=== PATIENT | male | born 1980 | race Caucasian/White ===

== ENCOUNTER 2016-11-07 20:29 | Emergency (ER) | payer OTHER ==
--- NOTE | 2016-11-07 21:48 | ED ORDER SUMMARY ---
..... Patient: JERED LARA OrderSheet [facility] VisitID: [id number] [address] [place] [address] 36y, M Registration Date/Time: 11/07/2016 ORDER SHEET Weight: 86.1 kg Allergies: ePHEDrine GENERAL ORDERS: MEDICATION ORDERS: Toradol IM 60 mg (NOW) (21:30 11/07/2016 ROSANAivens A.R.N.P.) (21:45 [facility]) IV FLUIDS: ORDER SHEET NOTES: [Electronically signed by Mikki Lux (22:13 11/07/2016)] [Electronically signed by Dora Vidales A.R.N.P. (23:38 11/07/2016)] [Electronically locked/signed by Mikki Lux (22:13 11/07/2016)]
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
--- NOTE | 2016-11-07 21:48 | ED ORDER SUMMARY ---
..... Patient: JERED LARA OrderSheet [facility] VisitID: [id number] [address] [place] [address] 36y, M Registration Date/Time: 11/07/2016 ORDER SHEET Weight: 86.1 kg Allergies: ePHEDrine GENERAL ORDERS: MEDICATION ORDERS: Toradol IM 60 mg (NOW) (21:30 11/07/2016 ROSANAivens A.R.N.P.) (21:45 [facility]) IV FLUIDS: ORDER SHEET NOTES: [Electronically signed by Mikki Lux (22:13 11/07/2016)] [Electronically signed by Dora Vidales A.R.N.P. (23:38 11/07/2016)] [Electronically locked/signed by Mikki Lux (22:13 11/07/2016)]
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
--- NOTE | 2016-11-07 23:38 | ED MED RECONCILIATION SUMMARY ---
Patient: JERED LARA Medication Reconciliation Report [facility] VisitID: [id number] [address] [place] [address] 36y, M Registration Date/Time: 11/07/2016 Weight: 86.1 kg Height/Length: 69 in. BMI: 28.1 ALLERGIES: ePHEDrine The patient's Home Medications are listed below: NONE. The source(s) of the original Home Medication information: Not obtained. The following Medications were given to the patient in the Emergency Department: Toradol [IM] IM 60 mg, administered: 11/07/2016 9:45:00 PM The following Medications were prescribed to the patient: Penicillin V 500mg: take 1 tab orally every 6 hours for 10 days. Dispense forty (40). No refill -- Dora Vidales A.R.N.P. Ultram 50 mg tablets: take 1-2 orally every 6 hours as needed for pain. Dispense twenty (20). No refills. Substitution is permissible. -- Dora Vidales A.R.N.P.
--- NOTE | 2016-11-07 23:38 | ED MED RECONCILIATION SUMMARY ---
Patient: JERED LARA Medication Reconciliation Report [facility] VisitID: [id number] [address] [place] [address] 36y, M Registration Date/Time: 11/07/2016 Weight: 86.1 kg Height/Length: 69 in. BMI: 28.1 ALLERGIES: ePHEDrine The patient's Home Medications are listed below: NONE. The source(s) of the original Home Medication information: Not obtained. The following Medications were given to the patient in the Emergency Department: Toradol [IM] IM 60 mg, administered: 11/07/2016 9:45:00 PM The following Medications were prescribed to the patient: Penicillin V 500mg: take 1 tab orally every 6 hours for 10 days. Dispense forty (40). No refill -- Dora Vidales A.R.N.P. Ultram 50 mg tablets: take 1-2 orally every 6 hours as needed for pain. Dispense twenty (20). No refills. Substitution is permissible. -- Dora Vidales A.R.N.P.
--- NOTE | 2016-11-07 23:38 | ED DISCHARGE INSTRUCTIONS ---
Patient: JERED LARA General Instructions [facility] VisitID: [id number] [place] [address] 36y, M Registration Date/Time: 11/07/2016 Severe dental pain. INSTRUCTIONS Warnings: GENERAL WARNINGS: Return or contact your physician immediately if your condition worsens or changes unexpectedly, if not improving as expected, or if other problems arise. Specifically return if problem worsens. Prescription Medications: Penicillin V 500mg: take 1 tab orally every 6 hours for 10 days. Dispense forty (40). No refill Ultram 50 mg tablets: take 1-2 orally every 6 hours as needed for pain. Dispense twenty (20). No refills. Substitution is permissible. Follow-up: Follow up with a dentist in about two days even if well. Summary of care provided to patient. Screening today revealed the patient's blood pressure to be in the hypertensive range. The patient should follow up with a primary care provider for blood pressure management. Understanding of the discharge instructions verbalized by patient. ADDITIONAL INFORMATION Dental Pain A crack or cavity in the tooth, which exposes the sensitive inner area of the tooth can cause tooth pain. An infection in the gum or the root of the tooth can cause pain and swelling. The pain is often made worse by drinking hot or cold fluids, or biting on hard foods. Pain may spread from the tooth to the ear or jaw on the same side. Home Care: Avoid hot and cold foods and liquids since your tooth may be sensitive to temperature changes. If your tooth is chipped or cracked, or if there is a large open cavity, apply OIL OF CLOVES (available [id number]-[id number] in drug stores) directly to the tooth to reduce pain. Some pharmacies carry an ipfk-zas-udjjeei "toothache kit." This contains a paste, which can be applied over the exposed tooth to decrease sensitivity. A cold pack on your jaw over the sore area may help reduce pain. You may use acetaminophen (Tylenol) or ibuprofen (Motrin, Advil) to control pain, unless another medicine was prescribed. [ NOTE: If you have chronic liver or kidney disease or ever had a stomach ulcer or GI bleeding, talk with your doctor before using these medicines.] If you have signs of an infection, an antibiotic will be given. Take it as directed. Follow-Up as directed with a dentist. Your pain may go away with the treatment given. However, only a dentist can fully evaluate and treat the cause and prevent the pain from coming back again. TOOTHACHE IS A SIGN OF DISEASE IN YOUR TOOTH AND SHOULD BE EXAMINED AND TREATED BY A DENTIST. Get Prompt Medical Attention if any of the following occur: Your face becomes swollen or red Pain worsens or spreads to the neck Fever over 100.4 F (38.0 C) Unusual drowsiness; headache or stiff neck; weakness or fainting Pus drains from the tooth Difficulty swallowing or breathing Penicillin V Potassium Oral tablet What is this medicine? PENICILLIN V (pen i SILL in V) is a penicillin antibiotic. It is used to treat certain kinds of bacterial infections. It will not work for colds, flu, or other viral infections. How should I use this medicine? Take this medicine by mouth with a full glass of water. Follow the directions on the prescription label. Take your medicine at regular intervals. Do not take your medicine more often than directed. Take all of your medicine as directed even if you think your are better. Do not skip doses or stop your medicine early. Talk to your powder carrier regarding the use of this medicine in children. While this drug may be prescribed for selected conditions, precautions do apply. What side effects may I notice from receiving this medicine? Side effects that you should report to your doctor or health care coordination manager as soon as possible: allergic reactions like skin rash or hives, swelling of the face, lips, or tongue breathing problems fever new symptoms of infection redness, blistering, peeling or loosening of the skin, including inside the mouth unusually weak or tired Side effects that usually do not require medical attention (report to your doctor or health care coordination manager if they continue or are bothersome): diarrhea headache nausea, vomiting sore mouth or tongue stomach upset What may interact with this medicine? control pills methotrexate other antibiotics probenecid some vaccines What if I miss a dose? If you miss a dose, take it as soon as you can. If it is almost time for your next dose, take only that dose. Do not take double or extra doses. Where should I keep my medicine? Keep out of the reach of children. Store at room temperature between 15 and 30 degrees C (59 and 86 degrees F). Keep container tightly closed. Throw away any unused medicine after the expiration date. What should I tell my health care provider before I take this medicine? They need to know if you have any of these conditions: asthma bowel disease, like colitis eczema kidney disease an unusual or allergic reaction to penicillin, cephalosporins, other antibiotics or medicines, foods, tartrazine or other dyes, or preservatives or trying to get breast-feeding What should I watch for while using this medicine? Tell your doctor or health care coordination manager if your symptoms do not improve. Do not treat diarrhea with over the counter products. Contact your doctor if you have diarrhea that lasts more than 2 days or if it is severe and watery. If you have diabetes, you may get a false-positive result for sugar in your urine. Check with your doctor or health care coordination manager. control pills may not work properly while you are taking this medicine. Talk to your doctor about using an extra method of control. Tramadol Hydrochloride Oral tablet What is this medicine? TRAMADOL (TRA ma dole) is a pain reliever. It is used to treat moderate to severe pain in adults. How should I use this medicine? Take this medicine by mouth with a full glass of water. Follow the directions on the prescription label. If the medicine upsets your stomach, take it with food or milk. Do not take more medicine than you are told to take. Talk to your powder carrier regarding the use of this medicine in children. Special care may be needed. What side effects may I notice from receiving this medicine? Side effects that you should report to your doctor or health care coordination manager as soon as possible: allergic reactions like skin rash, itching or hives, swelling of the face, lips, or tongue breathing difficulties, wheezing confusion itching light headedness or fainting spells redness, blistering, peeling or loosening of the skin, including inside the mouth seizures Side effects that usually do not require medical attention (report to your doctor or health care coordination manager if they continue or are bothersome): constipation dizziness drowsiness headache nausea, vomiting What may interact with this medicine? Do not take this medicine with any of the following medications: MAOIs like Carbex, Eldepryl, Marplan, Nardil, and Parnate This medicine may also interact with the following medications: alcohol or medicines that contain alcohol antihistamines benzodiazepines bupropion carbamazepine or oxcarbazepine clozapine cyclobenzaprine digoxin furazolidone linezolid medicines for depression, anxiety, or psychotic disturbances medicines for migraine headache like almotriptan, eletriptan, frovatriptan, naratriptan, rizatriptan, sumatriptan, zolmitriptan medicines for pain like pentazocine, buprenorphine, butorphanol, meperidine, nalbuphine, and propoxyphene medicines for sleep muscle relaxants naltrexone phenobarbital phenothiazines like perphenazine, thioridazine, chlorpromazine, mesoridazine, fluphenazine, prochlorperazine, promazine, and trifluoperazine procarbazine warfarin What if I miss a dose? If you miss a dose, take it as soon as you can. If it is almost time for your next dose, take only that dose. Do not take double or extra doses. Where should I keep my medicine? Keep out of the reach of children. Store at room temperature between 15 and 30 degrees C (59 and 86 degrees F). Keep container tightly closed. Throw away any unused medicine after the expiration date. What should I tell my health care provider before I take this medicine? They need to know if you have any of these conditions: brain tumor depression drug abuse or addiction head injury if you frequently drink alcohol containing drinks kidney disease or trouble passing urine liver disease lung disease, asthma, or breathing problems seizures or epilepsy suicidal thoughts, plans, or attempt; a previous suicide attempt by you or a family member an unusual or allergic reaction to tramadol, codeine, other medicines, foods, dyes, or preservatives or trying to get breast-feeding What should I watch for while using this medicine? Tell your doctor or health care coordination manager if your pain does not go away, if it gets worse, or if you have new or a different type of pain. You may develop tolerance to the medicine. Tolerance means that you will need a higher dose of the medicine for pain relief. Tolerance is normal and is expected if you take this medicine for a long time. Do not suddenly stop taking your medicine because you may develop a severe reaction. Your body becomes used to the medicine. This does NOT mean you are addicted. Addiction is a behavior related to getting and using a drug for a non-medical reason. If you have pain, you have a medical reason to take pain medicine. Your doctor will tell you how much medicine to take. If your doctor wants you to stop the medicine, the dose will be slowly lowered over time to avoid any side effects. You may get drowsy or dizzy. Do not drive, use machinery, or do anything that needs mental alertness until you know how this medicine affects you. Do not stand or sit up quickly, especially if you are an older patient. This reduces the risk of dizzy or fainting spells. Alcohol can increase or decrease the effects of this medicine. Avoid alcoholic drinks. You may have constipation. Try to have a bowel movement at least every 2 to 3 days. If you do not have a bowel movement for 3 days, call your doctor or health care coordination manager. Your mouth may get dry. Chewing sugarless gum or sucking hard candy, and drinking plenty of water may help. Contact your doctor if the problem does not go away or is severe. You have been given the following additional information: Dental Pain Penicillin V Potassium Oral tablet Tramadol Hydrochloride Oral tablet (Electronically signed by Dora Vidales A.R.N.P. 11/07/2016 23:38)
--- NOTE | 2016-11-07 23:38 | ED MAR SUMMARY ---
..... Medication Administration Record [address] [place] [address] Patient: JERED LARA Visit ID: [id number] 36y, M Weight: 86.1 kg Height/Length: 69 in BMI: 28.1 ALLERGIES: ePHEDrine Given 21:45 11/07/2016 Mikki Lux, Medication Administered: TORADOL [IM] (KETOROLAC TROMETHAMINE), Dose: 60 mg IM. Medication Ordered: Toradol IM 60 mg (NOW).
--- NOTE | 2016-11-07 23:38 | ED DISCHARGE INSTRUCTIONS ---
Patient: JERED LARA General Instructions [facility] VisitID: [id number] [place] [address] 36y, M Registration Date/Time: 11/07/2016 Severe dental pain. INSTRUCTIONS Warnings: GENERAL WARNINGS: Return or contact your physician immediately if your condition worsens or changes unexpectedly, if not improving as expected, or if other problems arise. Specifically return if problem worsens. Prescription Medications: Penicillin V 500mg: take 1 tab orally every 6 hours for 10 days. Dispense forty (40). No refill Ultram 50 mg tablets: take 1-2 orally every 6 hours as needed for pain. Dispense twenty (20). No refills. Substitution is permissible. Follow-up: Follow up with a dentist in about two days even if well. Summary of care provided to patient. Screening today revealed the patient's blood pressure to be in the hypertensive range. The patient should follow up with a primary care provider for blood pressure management. Understanding of the discharge instructions verbalized by patient. ADDITIONAL INFORMATION Dental Pain A crack or cavity in the tooth, which exposes the sensitive inner area of the tooth can cause tooth pain. An infection in the gum or the root of the tooth can cause pain and swelling. The pain is often made worse by drinking hot or cold fluids, or biting on hard foods. Pain may spread from the tooth to the ear or jaw on the same side. Home Care: Avoid hot and cold foods and liquids since your tooth may be sensitive to temperature changes. If your tooth is chipped or cracked, or if there is a large open cavity, apply OIL OF CLOVES (available [id number] in drug stores) directly to the tooth to reduce pain. Some pharmacies carry an fond-dcx-[id number] "toothache kit." This contains a paste, which can be applied over the exposed tooth to decrease sensitivity. A cold pack on your jaw over the sore area may help reduce pain. You may use acetaminophen (Tylenol) or ibuprofen (Motrin, Advil) to control pain, unless another medicine was prescribed. [ NOTE: If you have chronic liver or kidney disease or ever had a stomach ulcer or GI bleeding, talk with your doctor before using these medicines.] If you have signs of an infection, an antibiotic will be given. Take it as directed. Follow-Up as directed with a dentist. Your pain may go away with the treatment given. However, only a dentist can fully evaluate and treat the cause and prevent the pain from coming back again. TOOTHACHE IS A SIGN OF DISEASE IN YOUR TOOTH AND SHOULD BE EXAMINED AND TREATED BY A DENTIST. Get Prompt Medical Attention if any of the following occur: Your face becomes swollen or red Pain worsens or spreads to the neck Fever over 100.4 F (38.0 C) Unusual drowsiness; headache or stiff neck; weakness or fainting Pus drains from the tooth Difficulty swallowing or breathing Penicillin V Potassium Oral tablet What is this medicine? PENICILLIN V (pen i SILL in V) is a penicillin antibiotic. It is used to treat certain kinds of bacterial infections. It will not work for colds, flu, or other viral infections. How should I use this medicine? Take this medicine by mouth with a full glass of water. Follow the directions on the prescription label. Take your medicine at regular intervals. Do not take your medicine more often than directed. Take all of your medicine as directed even if you think your are better. Do not skip doses or stop your medicine early. Talk to your key cutter regarding the use of this medicine in children. While this drug may be prescribed for selected conditions, precautions do apply. What side effects may I notice from receiving this medicine? Side effects that you should report to your doctor or health manager intensive care unit as soon as possible: allergic reactions like skin rash or hives, swelling of the face, lips, or tongue breathing problems fever new symptoms of infection redness, blistering, peeling or loosening of the skin, including inside the mouth unusually weak or tired Side effects that usually do not require medical attention (report to your doctor or health manager intensive care unit if they continue or are bothersome): diarrhea headache nausea, vomiting sore mouth or tongue stomach upset What may interact with this medicine? control pills methotrexate other antibiotics probenecid some vaccines What if I miss a dose? If you miss a dose, take it as soon as you can. If it is almost time for your next dose, take only that dose. Do not take double or extra doses. Where should I keep my medicine? Keep out of the reach of children. Store at room temperature between 15 and 30 degrees C (59 and 86 degrees F). Keep container tightly closed. Throw away any unused medicine after the expiration date. What should I tell my health care provider before I take this medicine? They need to know if you have any of these conditions: asthma bowel disease, like colitis eczema kidney disease an unusual or allergic reaction to penicillin, cephalosporins, other antibiotics or medicines, foods, tartrazine or other dyes, or preservatives or trying to get breast-feeding What should I watch for while using this medicine? Tell your doctor or health manager intensive care unit if your symptoms do not improve. Do not treat diarrhea with over the counter products. Contact your doctor if you have diarrhea that lasts more than 2 days or if it is severe and watery. If you have diabetes, you may get a false-positive result for sugar in your urine. Check with your doctor or health manager intensive care unit. control pills may not work properly while you are taking this medicine. Talk to your doctor about using an extra method of control. Tramadol Hydrochloride Oral tablet What is this medicine? TRAMADOL (TRA ma dole) is a pain reliever. It is used to treat moderate to severe pain in adults. How should I use this medicine? Take this medicine by mouth with a full glass of water. Follow the directions on the prescription label. If the medicine upsets your stomach, take it with food or milk. Do not take more medicine than you are told to take. Talk to your key cutter regarding the use of this medicine in children. Special care may be needed. What side effects may I notice from receiving this medicine? Side effects that you should report to your doctor or health manager intensive care unit as soon as possible: allergic reactions like skin rash, itching or hives, swelling of the face, lips, or tongue breathing difficulties, wheezing confusion itching light headedness or fainting spells redness, blistering, peeling or loosening of the skin, including inside the mouth seizures Side effects that usually do not require medical attention (report to your doctor or health manager intensive care unit if they continue or are bothersome): constipation dizziness drowsiness headache nausea, vomiting What may interact with this medicine? Do not take this medicine with any of the following medications: MAOIs like Carbex, Eldepryl, Marplan, Nardil, and Parnate This medicine may also interact with the following medications: alcohol or medicines that contain alcohol antihistamines benzodiazepines bupropion carbamazepine or oxcarbazepine clozapine cyclobenzaprine digoxin furazolidone linezolid medicines for depression, anxiety, or psychotic disturbances medicines for migraine headache like almotriptan, eletriptan, frovatriptan, naratriptan, rizatriptan, sumatriptan, zolmitriptan medicines for pain like pentazocine, buprenorphine, butorphanol, meperidine, nalbuphine, and propoxyphene medicines for sleep muscle relaxants naltrexone phenobarbital phenothiazines like perphenazine, thioridazine, chlorpromazine, mesoridazine, fluphenazine, prochlorperazine, promazine, and trifluoperazine procarbazine warfarin What if I miss a dose? If you miss a dose, take it as soon as you can. If it is almost time for your next dose, take only that dose. Do not take double or extra doses. Where should I keep my medicine? Keep out of the reach of children. Store at room temperature between 15 and 30 degrees C (59 and 86 degrees F). Keep container tightly closed. Throw away any unused medicine after the expiration date. What should I tell my health care provider before I take this medicine? They need to know if you have any of these conditions: brain tumor depression drug abuse or addiction head injury if you frequently drink alcohol containing drinks kidney disease or trouble passing urine liver disease lung disease, asthma, or breathing problems seizures or epilepsy suicidal thoughts, plans, or attempt; a previous suicide attempt by you or a family member an unusual or allergic reaction to tramadol, codeine, other medicines, foods, dyes, or preservatives or trying to get breast-feeding What should I watch for while using this medicine? Tell your doctor or health manager intensive care unit if your pain does not go away, if it gets worse, or if you have new or a different type of pain. You may develop tolerance to the medicine. Tolerance means that you will need a higher dose of the medicine for pain relief. Tolerance is normal and is expected if you take this medicine for a long time. Do not suddenly stop taking your medicine because you may develop a severe reaction. Your body becomes used to the medicine. This does NOT mean you are addicted. Addiction is a behavior related to getting and using a drug for a non-medical reason. If you have pain, you have a medical reason to take pain medicine. Your doctor will tell you how much medicine to take. If your doctor wants you to stop the medicine, the dose will be slowly lowered over time to avoid any side effects. You may get drowsy or dizzy. Do not drive, use machinery, or do anything that needs mental alertness until you know how this medicine affects you. Do not stand or sit up quickly, especially if you are an older patient. This reduces the risk of dizzy or fainting spells. Alcohol can increase or decrease the effects of this medicine. Avoid alcoholic drinks. You may have constipation. Try to have a bowel movement at least every 2 to 3 days. If you do not have a bowel movement for 3 days, call your doctor or health manager intensive care unit. Your mouth may get dry. Chewing sugarless gum or sucking hard candy, and drinking plenty of water may help. Contact your doctor if the problem does not go away or is severe. You have been given the following additional information: Dental Pain Penicillin V Potassium Oral tablet Tramadol Hydrochloride Oral tablet (Electronically signed by Dora Vidales A.R.N.P. 11/07/2016 23:38)
--- NOTE | 2016-11-07 23:38 | ED MAR SUMMARY ---
..... Medication Administration Record [address] [place] [address] Patient: JERED LARA Visit ID: [id number] 36y, M Weight: 86.1 kg Height/Length: 69 in BMI: 28.1 ALLERGIES: ePHEDrine Given 21:45 11/07/2016 Mikki Lux, Medication Administered: TORADOL [IM] (KETOROLAC TROMETHAMINE), Dose: 60 mg IM. Medication Ordered: Toradol IM 60 mg (NOW).
== END 2016-11-07 22:10 | disposition home or self-care (01) ==
LOC: ED SRH 20:29
DX: K08.89 Other specified disorders of teeth and supporting structures (principal); F17.210 Nicotine dependence, cigarettes, uncomplicated; Z88.8 Allergy status to other drugs, medicaments and biological substances

== ENCOUNTER 2016-12-29 17:44 | Observation (INO) | payer OTHER ==
[~2016-12-29] VITALS: Ht 172.7 cm; Wt 88.1 kg
--- NOTE | 2016-12-29 19:06 | DIAGNOSTIC IMAGING REPORT ---
PROCEDURE: CT ABD/PELVIS WITH CONTRAST CLINICAL INDICATION: Right lower quadrant pain, initial encounter TECHNIQUE: 100 ml of Isovue 300 were injected intravenously and axial images were obtained of the entire abdomen and pelvis with sagittal and coronal reformations. COMPARISON: None. FINDINGS: ABDOMEN: Marked inflammation of the ascending colon with a single diverticulum and minor adjacent free fluid. No abscess or free air. There are also a couple of diverticula of the transverse colon. Lung bases are clear. Heart size is normal. Liver, gallbladder, pancreas, spleen and adrenal glands are normal. lobulation of the kidneys. Normal abdominal aorta. PELVIS: Normal appendix normal prostate and bladder. No suspicious osseous lesions. IMPRESSION: 1. Marked inflammatory changes of the ascending colon associated a single diverticulum. Findings suggest colitis but diverticulitis is also a consideration 2. Occasional diverticula of the transverse colon. 3. Normal appendix 4. Results discussed with Dr. Merlos All CT scans at this facility use dose modulation, iterative reconstruction, and/or weight-based dosing when appropriate to reduce radiation dose to as low as reasonably achievable.
--- NOTE | 2016-12-29 19:10 | ED ORDER SUMMARY ---
..... Patient: JERED LARA OrderSheet [facility] VisitID: [id number] [address] [place] [address] 36y, M Registration Date/Time: 12/29/2016 ORDER SHEET Weight: 95.2 kg Allergies: ePHEDrine GENERAL ORDERS: CBC w Diff Urgent (18:12/29/2016 [facility] per protocol) (18:09 [facility]) CMP Urgent (18:12/29/2016 [facility] per protocol) (18:09 [facility]) UA-Culture if indicated Urgent (18:12/29/2016 [facility] per protocol) (18:09 [facility]) Amylase Urgent (18:12/29/2016 [facility] per protocol) (18:09 [facility]) Lipase Urgent (18:12/29/2016 [facility] per protocol) (18:09 [facility]) CT Abd/Pel w Cont (No) (N/A) Urgent (18:12 12/29/2016 Dickson HENSLEY) (Ack 18:33 [facility]) MEDICATION ORDERS: IV FLUIDS: IV NS : initial bolus 500 mL (1000 mL/hr), then 250 mL/hr for 4h (NOW); Routine (18:10 12/29/2016 Dickson HENSLEY) [facility] Levaquin IV 750 mg/150 mL (NOW) (19:12/29/2016 Dickson HENSLEY) (19:[facility] Flagyl IV 500 mg/100mL (NOW) (19:12/29/2016 Dickson HENSLEY) ([facility]ck 19:[facility] Dilaudid IV 0.5 mg (NOW) (19:12/29/2016 Dickson HENSLEY) (19:20 [facility]) ORDER SHEET NOTES: [Electronically signed by Mikki Lux (20:31 12/29/2016)] [Electronically signed by Cheo Merlos MD (10:58 12/30/2016)] [Electronically locked/signed by Mikki Lux (20:31 12/29/2016)]
--- NOTE | 2016-12-29 19:10 | ED ORDER SUMMARY ---
..... Patient: JERED LARA OrderSheet [facility] VisitID: [id number] [address] [place] [address] 36y, M Registration Date/Time: 12/29/2016 ORDER SHEET Weight: 95.2 kg Allergies: ePHEDrine GENERAL ORDERS: CBC w Diff Urgent (18:12/29/2016 [facility] per protocol) (18:09 [facility]) CMP Urgent (18:12/29/2016 [facility] per protocol) (18:09 [facility]) UA-Culture if indicated Urgent (18:12/29/2016 [facility] per protocol) (18:09 [facility]) Amylase Urgent (18:12/29/2016 [facility] per protocol) (18:09 [facility]) Lipase Urgent (18:12/29/2016 [facility] per protocol) (18:09 [facility]) CT Abd/Pel w Cont (No) (N/A) Urgent (18:12 12/29/2016 Dickson HENSLEY) (Ack 18:33 [facility]) MEDICATION ORDERS: IV FLUIDS: IV NS : initial bolus 500 mL (1000 mL/hr), then 250 mL/hr for 4h (NOW); Routine (18:10 12/29/2016 Dickson HENSLEY) (18:[facility] Levaquin IV 750 mg/150 mL (NOW) (19:12/29/2016 Dickson HENSLEY) (19:20 [facility] Flagyl IV 500 mg/100mL (NOW) (19:12/29/2016 Dickson HENSLEY) (Ack 19:20 [facility] Dilaudid IV 0.5 mg (NOW) (19:12/29/2016 Dickson HENSLEY) (19:20 [facility]) ORDER SHEET NOTES: [Electronically signed by Mikki Lux (20:31 12/29/2016)] [Electronically signed by Cheo Merlos MD (10:58 12/30/2016)] [Electronically locked/signed by Mikki Lux (20:31 12/29/2016)]
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
--- NOTE | 2016-12-29 20:02 | Progress Note ---
Subjective General Full note dictated: 36 y.o male with 3 day hx of right lower abdominal pain seen at [facility] then to ER with CT abnl. Has diverticular ? lesion vs colitis. Plan: admit for NPO, IVF, abx and monitoring. Surgery consult.
--- NOTE | 2016-12-29 20:02 | Progress Note ---
Subjective General Full note dictated: 36 y.o male with 3 day hx of right lower abdominal pain seen at [facility] then to ER with CT abnl. Has diverticular ? lesion vs colitis. Plan: admit for NPO, IVF, abx and monitoring. Surgery consult.
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
[2016-12-29 21:08] VITALS: BP 128/79
[2016-12-30 02:01] VITALS: BP 107/69
[2016-12-30 06:57] VITALS: BP 100/62
--- NOTE | 2016-12-30 10:02 | Progress Note ---
Subjective General Pain is getting better with medications. Localized in RLQ. Denies nausea, vomiting, diarrhea, fever/chills, rashes. Physical Exam Vital Signs / I&Os Vital Signs Date Time Temp Pulse Resp B/P Pulse O2 O2 Flow FiO2 Ox Delivery Rate 12/30 0657 97.7 63 18 100/62 98 Room Air 12/30 0230 Room Air 12/30 0201 97.9 71 16 107/69 98 Room Air 12/29 2108 98.4 78 18 128/79 98 Room Air I&O 12/30 0000 12/29 1600 12/29 0800 Intake Total 0 Output Total 0 Balance 0 General Appearance Alert, Oriented X3, Cooperative, No acute distress Lungs Clear to auscultation Neck Supple Cardiovascular Regular rate and rhythm, Normal S1 and S2, No murmurs, gallops, rubs Abdomen Normal bowel sounds, Soft, tender in focal spot in RLQ w/o rebound or guarding Extremities No cyanosis, No clubbing, No edema Skin No Rashes Neurological No lateralizing signs Psych/Mental Status Mental status normal LAB Results Laboratory Tests 12/30 12/29 12/29 0540 1815 1805 Chemistry Plasma Sodium (136 - 145 mmol/L) 139 139 Plasma Potassium (3.5 - 5.1 mmol/L) 4.3 3.8 Plasma Chloride (98 - 107 mmol/L) 104 101 CO2 (Enzymatic) (21 - 32 mmol/L) 26 29 BUN (7 - 18 mg/dL) 13 18 Creatinine (0.6 - 1.3 mg/dL) 0.9 1.0 Est GFR ( Amer) (mL/min) >60 >60 Est GFR (Non-Af Amer) (mL/min) >60 >60 Glucose (70 - 110 mg/dL) 97 83 Plasma Calcium (8.5 - 10.1 mg/dL) 8.5 8.9 Total Bilirubin (0.0 - 1.0 mg/dL) 1.2 AST (15 - 37 U/L) 16 ALT (12 - 78 U/L) 34 Alkaline Phosphatase (46 - 116 U/L) 66 Total Protein (6.4 - 8.2 g/dL) 8.2 Albumin (3.3 - 5.0 g/dL) 4.2 Amylase (25 - 115 U/L) 47 Lipase (73 - 393 U/L) 106 Hematology WBC (4.5 - 11.5 K/uL) 8.8 13.8 RBC (4.50 - 5.90 M/uL) 4.44 4.69 Hgb (13.5 - 17.5 gm/dL) 14.7 15.6 Hct (41.0 - 53.0 %) 43.5 45.8 MCV (80 - 100 fL) 98 98 MCH (26 - 34 pg) 33 33 RDW (11.6 - 14.8 %) 13.0 13.1 Neut % (Auto) (50 - 75 %) 54.6 70.5 Lymph % (Auto) (25 - 40 %) 30.4 18.1 [place] % (Auto) (3 - 14 %) 10.9 9.7 Eos % (Auto) (0 - 4 %) 3.2 1.0 Baso % (Auto) (0 - 2 %) 0.9 0.7 Plt Count, EDTA (150 - 400 K/uL) 193 200 PUBS MCHC (31 - 37 g/dL) 34 34 Urines Urine Color YELLOW Urine Appearance CLEAR Urine pH (5.0 - 8.0) 5.5 Ur Specific [place] (1.010 - 1.030) > 1.030 Urine Protein (NEGATIVE) NEGATIVE Urine Ketones (NEGATIVE) 2+ Urine Blood (NEGATIVE) 1+ Urine Nitrite (NEGATIVE) NEGATIVE Ur Bilirubin Confirm (NEGATIVE) NEGATIVE Urine Urobilinogen (0.2 - 1.0 EU/dL) 0.2 Ur Leukocyte Esterase (NEGATIVE) NEGATIVE Urine RBC (0 - 1 rbc/hpf) 1-3 Urine WBC (0 - 1 wbc/hpf) 0-1 Ur Epithelial Cells (0 - 5 EPI/hpf) 0-1 Urine Bacteria (NONE SEEN) NONE SEEN Urine Glucose (NEGATIVE) NEGATIVE Urine Comment CULT NOT INDICATED Assessment and Plan Problem List 1. Acute diverticulitis of intestine Plan Continue IVF, levaquin/flagyl, and will follow up general surgery recommendations. Leukocytosis has improved. Pain and nausea control as needed. FEN: NPO for now PPx: SCDs. Will start on lovenox if no plans for surgical intervention. Dispo: Inpatient for above IV abx and surgical eval. E&M Codes Rounding: Inpt-Moderate/[id number]
--- NOTE | 2016-12-30 10:58 | ED MED RECONCILIATION SUMMARY ---
Patient: JERED LARA Medication Reconciliation Report [facility] VisitID: [id number] [address] [place] [address] 36y, M Registration Date/Time: 12/29/2016 Weight: 95.2 kg Height/Length: 68 in. BMI: 31.9 ALLERGIES: ePHEDrine The patient's Home Medications are listed below: NONE. The source(s) of the original Home Medication information: Not obtained. The following Medications were given to the patient in the Emergency Department: IV NS IV Fluids bolus 500 mL over 30 minute(s), then 250 mL/hr, administered: 12/29/2016 6:18:00 PM Levaquin [IVPB] IVPB bolus 0, then 750 mg 50 mg/hr, administered: 12/29/2016 7:19:00 PM Dilaudid [IVP] IVP 0.5 mg, administered: 12/29/2016 7:20:00 PM The following Medications were prescribed to the patient: None.
--- NOTE | 2016-12-30 10:58 | ED DISCHARGE INSTRUCTIONS ---
Patient: JERED LARA General Instructions [facility] VisitID: [id number] [address] [place] [address] 36y, M Registration Date/Time: 12/29/2016 Acute cecal diverticulitis. (Electronically signed by Cheo Merlos MD 12/30/2016 10:58)
--- NOTE | 2016-12-30 10:58 | ED MED RECONCILIATION SUMMARY ---
Patient: JERED LARA Medication Reconciliation Report [facility] VisitID: [id number] [address] [place] [address] 36y, M Registration Date/Time: 12/29/2016 Weight: 95.2 kg Height/Length: 68 in. BMI: 31.9 ALLERGIES: ePHEDrine The patient's Home Medications are listed below: NONE. The source(s) of the original Home Medication information: Not obtained. The following Medications were given to the patient in the Emergency Department: IV NS IV Fluids bolus 500 mL over 30 minute(s), then 250 mL/hr, administered: 12/29/2016 6:18:00 PM Levaquin [IVPB] IVPB bolus 0, then 750 mg 50 mg/hr, administered: 12/29/2016 7:19:00 PM Dilaudid [IVP] IVP 0.5 mg, administered: 12/29/2016 7:20:00 PM The following Medications were prescribed to the patient: None.
--- NOTE | 2016-12-30 10:58 | ED MAR SUMMARY ---
..... Medication Administration Record [facility] [address] [place] [place] [address] Patient: JERED LARA Visit ID: [id number] 36y, M Weight: 95.2 kg Height/Length: 68 in BMI: 31.9 ALLERGIES: ePHEDrine Start 18:18 12/29/2016 Mikki Lux, Medication Administered: IV NS (SALINE), Dose: IV Fluids over 2 hour(s), Rate: 250 mL/hr, Bolus: 500 mL over 30 minute(s), Dispensed: 1000 mL bag, Site: #1 right AC. Medication Ordered: IV NS : initial bolus 500 mL (1000 mL/hr), then 250 mL/hr for 4h (NOW); Routine. Start 19:19 12/29/2016 Mikki Lux, Medication Administered: LEVAQUIN [IVPB] (LEVOFLOXACIN), Dose: 750 mg IVPB over 1.5 hour(s), Rate: 50 mg/hr, Dispensed: 150 mL bag, Site: #1 right AC. Medication Ordered: Levaquin IV 750 mg/150 mL (NOW). Given 19:20 12/29/2016 Mikki Lux, Medication Administered: DILAUDID [IVP] (HYDROMORPHONE HCL PF), Dose: 0.5 mg IVP, Site: #1 right AC. Medication Ordered: Dilaudid IV 0.5 mg (NOW).
--- NOTE | 2016-12-30 10:58 | ED MAR SUMMARY ---
..... Medication Administration Record [facility] [address] [place] [address] Patient: JERED LARA Visit ID: [id number] 36y, M Weight: 95.2 kg Height/Length: 68 in BMI: 31.9 ALLERGIES: ePHEDrine Start 18:18 12/29/2016 Mikki Lux, Medication Administered: IV NS (SALINE), Dose: IV Fluids over 2 hour(s), Rate: 250 mL/hr, Bolus: 500 mL over 30 minute(s), Dispensed: 1000 mL bag, Site: #1 right AC. Medication Ordered: IV NS : initial bolus 500 mL (1000 mL/hr), then 250 mL/hr for 4h (NOW); Routine. Start 19:19 12/29/2016 Mikki Lux, Medication Administered: LEVAQUIN [IVPB] (LEVOFLOXACIN), Dose: 750 mg IVPB over 1.5 hour(s), Rate: 50 mg/hr, Dispensed: 150 mL bag, Site: #1 right AC. Medication Ordered: Levaquin IV 750 mg/150 mL (NOW). Given 19:20 12/29/2016 Mikki Lux, Medication Administered: DILAUDID [IVP] (HYDROMORPHONE HCL PF), Dose: 0.5 mg IVP, Site: #1 right AC. Medication Ordered: Dilaudid IV 0.5 mg (NOW).
--- NOTE | 2016-12-30 10:58 | ED DISCHARGE INSTRUCTIONS ---
Patient: JERED LARA General Instructions [facility] VisitID: [id number] [address] [place] [address] 36y, M Registration Date/Time: 12/29/2016 Acute cecal diverticulitis. (Electronically signed by Cheo Merlos MD 12/30/2016 10:58)
[2016-12-30 11:54] VITALS: BP 108/67
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
[2016-12-30 14:38] VITALS: BP 121/76
[2016-12-30 18:51] VITALS: BP 116/65
[2016-12-30 22:35] VITALS: BP 115/72
[2016-12-31 03:33] VITALS: BP 94/57
[2016-12-31 06:53] VITALS: BP 101/60
[2016-12-31 10:18] VITALS: BP 124/80
[2016-12-31] MEDS ORDERED: VICODIN EQUIVAL1 TAB PO (11:02)
[2016-12-31] MEDS ORDERED: METRONIDAZOLE500 MG PO (11:02)
[2016-12-31] MEDS ORDERED: LEVOFLOXACIN500 MG PO (11:02)
--- NOTE | 2016-12-31 11:05 | Provider's Discharge Care Plan ---
Problem, Goal, Plan Problem List 1. Acute diverticulitis of intestine Instructions: Follow up as directed, Take meds as directed, Please continue taking your antibiotics: levaquin each night, metronidazole 3x/day for the next 8 days. For the next few days, stick with a bland, soft diet. After your antibiotics have stopped, then switch to a high-fiber diet. I have provided you with a quick reference to help with this. You will need to follow up with the surgeon at his office in about 6 weeks.
--- NOTE | 2016-12-31 11:21 | Discharge Summary ---
Discharge Summary Report Admit Date 12/29/16 Discharge Date 12/31/16 Admission Diagnosis Acute diverticulitis of the ascending colon Discharge Diagnosis Acute diverticulitis of the ascending colon Brief History Per H&P by the admitting physician: 36-year-old male who presented to the walk-in clinic today, [facility] urgent care, and was having severe abdominal pain in his right lower abdomen, been going on for 3 days, 8/10 pain and has been slowly getting worse. It is very tender to palpation and a sharp pain, it does not really move. He otherwise states he is doing pretty well. Hospital Course Patient was found to have marked inflammation of the ascending colon and a single diverticulum suggestive of colitis/diverticultitis. He was made NPO, placed on levaquin and flagyl, and IVF hydration. His pain improved dramatically over the course of his stay, and he is requiring very little in the way of pain medicine. He was seen by the general surgeon, who agreed with management, and recommended follow up at his outpatient office in about [address] and eventual colonoscopy. His diet was advanced, and he was tolerating this well prior to discharge. He will be discharged on levaquin and flagyl for a full 10-day course. He was instructed to continue a soft/bland/low residue diet for now, and counseled on eventually switching to a high-fiber diet once he is done with his antibiotics. General Appearance Alert, Oriented X3, Cooperative, No acute distress HEENT Mucous membran moist/pink Lungs Clear to auscultation Cardiovascular Regular Rate, Normal S1, Normal S2, No murmurs Abdomen Normal bowel sounds, Soft, mild tenderness to deep palpation in RLQ w/o rebound or guarding Skin No Rashes Neurological Normal gait, Strength at 5/5 X4 ext, Sensation intact, Cranial nerves 3-12 NL Psych/Mental Status Mental status NL Lab/Imaging Laboratory Tests 12/31 0516 Chemistry Plasma Sodium (136 - 145 mmol/L) 140 Plasma Potassium (3.5 - 5.1 mmol/L) 4.5 Plasma Chloride (98 - 107 mmol/L) 106 CO2 (Enzymatic) (21 - 32 mmol/L) 26 BUN (7 - 18 mg/dL) 9 Creatinine (0.6 - 1.3 mg/dL) 0.9 Est GFR ( Amer) (mL/min) >60 Est GFR (Non-Af Amer) (mL/min) >60 Glucose (70 - 110 mg/dL) 121 Plasma Calcium (8.5 - 10.1 mg/dL) 8.2 Hematology WBC (4.5 - 11.5 K/uL) 5.7 RBC (4.50 - 5.90 M/uL) 3.88 Hgb (13.5 - 17.5 gm/dL) 12.9 Hct (41.0 - 53.0 %) 38.2 MCV (80 - 100 fL) 99 MCH (26 - 34 pg) 33 RDW (11.6 - 14.8 %) 13.1 Neut % (Auto) (50 - 75 %) 52.7 Lymph % (Auto) (25 - 40 %) 29.3 [place] % (Auto) (3 - 14 %) 12.5 Eos % (Auto) (0 - 4 %) 5.0 Baso % (Auto) (0 - 2 %) 0.5 Plt Count, EDTA (150 - 400 K/uL) 171 PUBS MCHC (31 - 37 g/dL) 34 Discharge Instructions/Meds Patient was instructed to continue his antibiotics as prescribed. He will continue his low residue diet as above, with eventual high-fiber diet. He will follow up with general surgery as an outpatient in [address] and eventual colonoscopy. E&M Codes Discharge: Inpt >30 min spent/[id number]
== END 2016-12-31 14:00 | disposition home or self-care (01) ==
LOC: ED SRH 17:44 → TRANS SRH 19:28 → ACUTE2 SRH 19:28
PROVIDERS: ADMIT Family Medicine
DX: K57.32 Diverticulitis of large intestine without perforation or abscess without bleeding (principal); D72.829 Elevated white blood cell count, unspecified

== ENCOUNTER 2017-02-02 15:12 | Inpatient (IN) | payer OTHER ==
[~2017-02-02] VITALS: Ht 170.2 cm; Wt 84.0 kg
[~2017-02-02 15:12] MED LIST: LEVOFLOXACIN500 MG PO; METRONIDAZOLE500 MG PO; VICODIN EQUIVAL1 TAB PO
[2017-02-12] VITALS (8 sets, daily range): BP systolic 136–179; BP diastolic 80–97
--- NOTE | 2017-02-12 13:50 | OPERATIVE REPORT ---
DATE OF SURGERY: 02/12/2017 SURGEON: Michael Gonzales MD PREOPERATIVE DIAGNOSIS: 1. Cecal diverticulitis POSTOPERATIVE DIAGNOSIS: 1. history of cecal diverticulitis PROCEDURE PERFORMED: 1. Partial right hemicolectomy ANESTHESIA: General. INDICATIONS: The patient is a 36-year-old man with a previous episode of right- sided abdominal pain, attributed on CT scan to cecal diverticulitis; colitis versus diverticulitis were a consideration. The patient was referred for resection. He was diagnosed with solitary cecal diverticulitis syndrome and wished to avoid possible future episodes. SURGICAL TECHNIQUE: The patient was taken to the operating room where a general anesthetic was administered and the patient prepped and draped in the usual sterile fashion. A local anesthetic of 0.5% Marcaine with epinephrine was used at each incision site. An intraumbilical incision was made and a Veress needle used to insufflate. A 10 mm cannula was passed and 2 additional cannulas were placed in the lower midline. The right colon was mobilized along its peritoneal reflection and the ileum freed up. Once this was sufficiently freed, an appendectomy style incision was made just below the level of the umbilicus, in a muscle splitting fashion. The right colon and terminal ileum were drawn up into this. The terminal ileum was divided using a ALAN stapling device, and the right colon was resected up to about the one-third point. Note that during examination of this area, there was no specific area of inflammation or diverticulum discovered throughout the examination. Therefore, the suspected area was resected without gross confirmation. The entire right colon was examined during the laparoscopic procedure. After the resection was carried out, the mesocolon was taken down between 2-0 Vicryl ligatures. A functional end-to-end anastomosis was carried out using a ALAN stapling device and a TA-55 stapling device. The anastomosis was returned to the abdominal cavity. The muscle- splitting wound was closed with continuous 2-0 Vicryl suture and the skin was closed with running subcuticular 4-0 Vicryl suture. Gas was evacuated and the 10 mm port closed with interrupted subcuticular 4-0 Vicryl suture. Steri-Strips and dressings were placed at all sites, and the patient left the operating room in good condition.
[2017-02-13 02:36] VITALS: BP 163/78
[2017-02-13 07:13] VITALS: BP 118/67
[2017-02-13 10:52] VITALS: BP 130/82
--- NOTE | 2017-02-13 11:02 | Progress Note ---
Subjective General POD 1 post partial right hemicolectomy. Pt. tolerating fluids, passed gas and stool. He complains of incisional pain. Physical Exam Vital Signs / I&Os Vital Signs Date Time Temp Pulse Resp B/P Pulse O2 O2 Flow FiO2 Ox Delivery Rate 02/13 1052 98.1 71 20 130/82 97 Room Air 0.0 02/13 0713 98.1 79 20 118/67 100 Room Air 0.0 02/13 0236 98.4 95 20 163/78 100 Room Air 0.0 02/12 2225 98.8 68 16 136/83 96 Room Air 0.0 02/12 2000 Room Air 02/12 1854 98.2 62 16 155/87 97 02/12 1501 82 16 159/80 98 04 1419 62 16 156/97 96 02/12 1340 72 17 163/95 97 Room Air 02/12 1338 67 16 164/94 96 Room Air 02/12 1320 79 152/84 96 Room Air 02/12 1306 97.5 59 17 179/90 95 Room Air 02/12 1250 56 19 168/62 95 Nasal 3.0 Cannula 02/12 1245 75 12 168/62 97 Nasal 3.0 Cannula 02/12 1240 77 12 161/87 96 Nasal 3.0 Cannula 02/12 1235 64 13 144/95 97 Nasal 3.0 Cannula 02/12 1230 68 10 157/90 95 Nasal 3.0 Cannula 02/12 1225 53 10 157/90 95 Nasal 3.0 Cannula 02/12 1220 53 11 165/88 96 Nasal 3.0 Cannula 02/12 1215 53 13 161/87 96 Nasal 4.0 Cannula 02/12 1210 51 14 145/83 100 Nasal 4.0 Cannula 02/12 1205 58 12 145/83 99 Nasal 4.0 Cannula 02/12 1200 58 14 141/106 96 02/12 1155 60 13 141/106 96 02/12 1150 60 13 145/86 97 02/12 1145 63 16 163/100 96 02/12 1140 62 13 158/97 95 02/12 1138 98.6 68 19 151/94 95 I&O 02/12 0800 02/12 1600 02/13 0000 Intake Total 400 478 Output Total 120 100 Balance 280 378 General Appearance Alert, Oriented X3, Cooperative Abdomen Normal exam, Normal bowel sounds, Soft Assessment and Plan Problem List 1. S/P partial colectomy Plan advance diet
[2017-02-13 14:57] VITALS: BP 139/76
[2017-02-13 18:36] VITALS: BP 153/78
[2017-02-13 22:19] VITALS: BP 117/64
[2017-02-14 02:20] VITALS: BP 125/64
[2017-02-14 06:48] VITALS: BP 108/55
[2017-02-14] MEDS ORDERED: PERCOCET1 TA1 PO (07:21)
--- NOTE | 2017-02-14 07:22 | Provider's Discharge Care Plan ---
Problem, Goal, Plan Problem List 1. S/P partial colectomy
--- NOTE | 2017-02-14 07:22 | Provider's Discharge Care Plan ---
Problem, Goal, Plan Problem List 1. S/P partial colectomy
== END 2017-02-14 10:30 | disposition home or self-care (01) | DRG 221 ==
LOC: SCU SRH 02-12 07:23 → U SRH 02-12 09:50 → CC SRH 02-12 13:29
PROVIDERS: ADMIT Surgery
PROC: 0DTF0ZZ Resection of Right Large Intestine, Open Approach (ICD-10-PCS; principal; 2017-02-12 09:50)
DX: K57.30 Diverticulosis of large intestine without perforation or abscess without bleeding (principal); F17.210 Nicotine dependence, cigarettes, uncomplicated
CPT/HCPCS: 50002; 60001; 70002; 80102; 80212; 80248; 81636; 81638; 81738; 82669; 82794; 82807; 82897; 83475; 83587; 83982; 84038; 84041; 84532; 91672; 92132